=== PATIENT | female | born 1955 | race Caucasian/White ===

== ENCOUNTER 2019-12-21 13:01 | Emergency (ER) | payer MEDICARE, OTHER ==
[2019-12-21] MEDS ORDERED: TORAdol 30 mg Injection IM ONE (13:15)
[2019-12-21] MEDS ORDERED: TORAdol 30 mg Injection ONE ×2 (13:30→13:34)
--- NOTE | 2019-12-21 13:38 | XRAY ---
Indication: Pain following fall. Comparison: None 2 view right femur demonstrates nondisplaced tibial plateau fracture with hemarthosis. No other bony, articular, or soft tissue abnormalities.
--- NOTE | 2019-12-21 13:39 | XRAY ---
Indication: Pain following fall. Comparison: None 2 view right lower leg demonstrates nondisplaced slightly comminuted tibial plateau/proximal tibia fracture with hemarthrosis. No other bony, articular, or soft tissue abnormalities.
[2019-12-21 14:06] VITALS: BP 117/98; PULSE 81; O2SAT 98
--- NOTE | 2019-12-21 14:24 | ERPHSYRPT ---
- History of Present Illness Time Seen by Provider: 12/21/19 13:25 Source: patient Exam Limitations: no limitations Patient Subjective Stated Complaint: Pt fell off the 3rd step of a ladder while power washing and injured her lower right extremity Triage Nursing Assessment: Pt brought to the ER by her , swelling to the right knee, pain below right knee on entire lower extremity, pt unable to place weight, pulses normal, vitals wnl, denies any other injuries Physician History: Patient is a 64-year-old white male female who was on a ladder when she fell off about 3 steps. She then developed pain in the right knee extending up the femur and down the leg. She is unable to bear weight. This occurred just prior to arrival. Method of Injury: fell Occurred: just prior to arrival Quality: stabbing Severity of Pain-Max: moderate Severity of Pain-Current: moderate Lower Extremities Pain: knee: right (Tenderness no effusion) Modifying Factors: Improves With: movement Associated Symptoms: unable to bear weight Allergies/Adverse Reactions: morphine Allergy (Severe, Verified 12/21/19 13:30) Home Medications: Atorvastatin Calcium [Lipitor] 10 mg PO DAILY 12/21/19 [History] captopriL [Captopril] 25 mg PO TID 12/21/19 [History] Travel Risk - International Travel Have you traveled outside of the country in past 3 weeks: No Have you or anyone close to you been diagnosed with or: No Do your reside in a community with a known COVID-19 case?: Yes If Yes where:: [place] - Coronavirus Screening Has patient experienced Coronavirus symptoms: No - Review of Systems Constitutional: No Fever, No Chills Eyes: No Symptoms Ears, Nose, & Throat: No Symptoms Respiratory: No Cough, No Dyspnea Cardiac: No Chest Pain, No Edema, No Syncope Abdominal/Gastrointestinal: No Abdominal Pain, No Nausea, No Vomiting, No Diarrhea Genitourinary Symptoms: No Dysuria Musculoskeletal: Joint Pain, No Back Pain, No Neck Pain Skin: No Rash Neurological: No Dizziness, No Focal Weakness, No Sensory Changes Psychological: No Symptoms Endocrine: No Symptoms All Other Systems: Reviewed and Negative - Past Medical History Cardiac History: High Cholesterol, Hypertension Other Medical History: pre diabetic - Past Surgical History Past Surgical History: Yes Gastrointestinal: Hernia Repair Female Surgical History: Hysterectomy Other Surgical History: prolapse fixed, breast cancer - Social History Smoking Status: Never smoker Exposure to second hand smoke: No Drug Use: none Patient Lives Alone: No - Nursing Vital Signs Nursing Vital Signs: Initial Vital Signs Temperature 98.2 F 12/21/19 13:13 Pulse Rate 88 12/21/19 13:13 Blood Pressure 119/83 12/21/19 13:13 O2 Sat by Pulse Oximetry 96 12/21/19 13:13 Pain Scale Pain Intensity 4 - Physical Exam General Appearance: alert Eyes, Ears, Nose, Throat Exam: moist mucous membranes Neck Exam: non-tender, supple Cardiovascular/Respiratory Exam: chest non-tender, normal breath sounds, regular rate/rhythm, no respiratory distress Gastrointestinal/Abdominal Exam: non-tender, guarding Back Exam: normal inspection, No vertebral tenderness Knees Exam: right knee: bone tenderness, pain, soft tissue tenderness Neuro/Tendon Exam: normal sensation, normal motor functions Mental Status Exam: alert, oriented x 3, cooperative Skin Exam: normal color, warm, dry SpO2: 98 Procedures - Splinting Location of Splint: Lower Leg, Upper Leg Type of Splint: Orthoglass Long Leg Splint Splint Applied By: ED Nurse Pre-Proc Neuro Vasc Exam: normal Post-Proc Neuro Vasc Exam: neurovascular intact - Radiology Exams Knee X-ray Interpretation: Other (Radiologist reports a plateau fracture of the tibia ) Ordered Tests: Active Orders 24 hr Category Date Time Status FEMUR Stat Exams 12/21/19 13:27 Completed LOWER LEG Stat Exams 12/21/19 13:14 Completed Medication Summary Discontinued Medications Generic Name Dose Route Start Last Admin Trade Name Filibertoq PRN Reason Stop Dose Admin Ketorolac Tromethamine 60 mg 12/21/19 13:15 12/21/19 13:33 Toradol 30 Mg Injection IM 12/21/19 13:16 60 mg STAT ONE Administration Ketorolac Tromethamine Confirm 12/21/19 13:30 Toradol 30 Mg Injection Administered 12/21/19 13:31 Dose 30 mg .ROUTE .STK-MED ONE Ketorolac Tromethamine Confirm 12/21/19 13:34 Toradol 30 Mg Injection Administered 12/21/19 13:35 Dose 30 mg .ROUTE .STK-MED ONE - Progress Progress: improved - Departure Departure Disposition: Home Clinical Impression: Tibial plateau fracture, right Condition: Stable Critical Care Time: No Referrals: CLINT KELLEY [Primary Care Provider] - Additional Instructions: Patient follows up at the [facility] in [facility]
== END 2019-12-21 14:44 | disposition home or self-care (01) ==
LOC: ED 13:01
DX: S82.141A Displaced bicondylar fracture of right tibia, initial encounter for closed fracture (principal); M25.561 Pain in right knee; W18.39XA Other fall on same level, initial encounter; Y93.H9 Activity, other involving exterior property and land maintenance, building and construction; Y92.89 Other specified places as the place of occurrence of the external cause; I10 Essential (primary) hypertension; E78.00 Pure hypercholesterolemia, unspecified; R73.03 Prediabetes; Z85.3 Personal history of malignant neoplasm of breast
CPT/HCPCS: 29505; 73552; 73590; 96372; 99284; J1885

== ENCOUNTER 2024-02-21 07:34 | Observation (INO) | payer MEDICARE, OTHER ==
--- NOTE | 2024-02-21 08:11 | ERPHSYRPT ---
- History of Present Illness Time Seen by Provider: 02/21/24 08:00 Source: patient Exam Limitations: no limitations Patient Subjective Stated Complaint: wellness- possible reaction Triage Nursing Assessment: Patient ambulated back to ED and transferred self to bed. Patient A+O X 3. Patient's skin pink, warm and dry. Patient states she took Tramadol 50mg PO around 1999, which was her first time ever taking this med. Patient states she got up to use restroom sometime in the night and stated she felt fuzzy. Patient states when she got up this am around 0700 all of a sudden she started sweating, lips tingling, vision blurred and nauseated, which got better after 10 min. Patient states she is in a lot of pain with her neck and headache 05/31. Patient states she still feels fussy. BS noted to be 105. Physician History: Patient is a 68-year-old female with a history of hypertension and hypercholesterolemia presents to the emergency department for evaluation of lip tingling, diaphoresis, nausea that started this morning at approximately 7 AM. No emmy chest pain. Patient attributes her symptoms to tramadol which she took last night at approximately 8 PM. Patient states after taking tramadol she began to feel "fuzzy". Patient went to sleep and had no issues overnight. This morning developed a forementioned symptoms. Patient advises that she has been experiencing neck pain. Patient has seen her primary care doctor and at this point they do not have an answer for her neck pain and spite of imaging studies. She is currently scheduled for a neck MRI. Symptoms are mild to moderate in intensity. No specific worsening or improving factors. Patient has not had a cardiac workup other than a heart scan in August 2023. at bedside. They voiced no other complaints or concerns at this time Portions of this note were created with voice recognition technology. There may be grammatical, spelling, punctuation or sound alike errors Timing/Duration: today Severity: moderate Modifying Factors: Improves With: nothing Associated Symptoms: denies symptoms Allergies/Adverse Reactions: morphine Allergy (Severe, Verified 02/21/24 07:42) tramadol Allergy (Verified 02/21/24 08:29) Home Medications: Atorvastatin Calcium [Lipitor] 10 mg PO DAILY 12/21/19 [History] captopriL [Captopril] 25 mg PO TID 12/21/19 [History] Alendronate Sodium [Fosamax] 1 tab PO WEEKLY 02/21/24 [History] Multivitamin 1 tab PO DAILY 02/21/24 [History] Hx Influenza Vaccination/Date Given: Yes Hx Pneumococcal Vaccination/Date Given: Yes Immunizations Up to Date: Yes Travel Risk - International Travel Have you traveled outside of the country in past 3 weeks: No - Emerging Infectious Disease Are you exhibiting symptoms associated with any current EIDs: No - Review of Systems Constitutional: No Symptoms, No Fever, No Chills Eyes: No Symptoms Ears, Nose, & Throat: No Symptoms Respiratory: No Symptoms, No Cough, No Dyspnea Cardiac: No Symptoms, No Chest Pain, No Edema, No Syncope Abdominal/Gastrointestinal: No Symptoms, No Abdominal Pain, No Nausea, No Vomiting, No Diarrhea Genitourinary Symptoms: No Symptoms, No Dysuria Musculoskeletal: No Symptoms, No Back Pain, No Neck Pain Skin: No Symptoms, No Rash Neurological: No Symptoms, No Dizziness, No Focal Weakness, No Sensory Changes Psychological: No Symptoms Endocrine: No Symptoms Hematologic/Lymphatic: No Symptoms Immunological/Allergic: No Symptoms All Other Systems: Reviewed and Negative - Past Medical History Pertinent Past Medical History: Yes Neurological History: Migraines Cardiac History: High Cholesterol, Hypertension Respiratory History: No Pertinent History Endocrine Medical History: Other Musculoskeletal History: Fractures, Osteoarthritis Other Medical History: PAST R TIBIA FRACTURE. PRE-DIABETIC - Past Surgical History Past Surgical History: Yes Gastrointestinal: Hernia Repair Female Surgical History: Hysterectomy Other Surgical History: prolapse fixed, breast cancer - Social History Smoking Status: Never smoker Exposure to second hand smoke: No Drug Use: none Patient Lives Alone: No - Social Determinants of Health Will the patient participate in the screening: Yes Do you worry about a steady place to live?: No Do you have any problems with any of the following?: No known problems In the past 12 months,have you had to go without utilities?: No Transportation Issues: No Has anyone in your support network made you feel unsafe?: No Have you or anyone in your house had to go without enough: No - Nursing Vital Signs Nursing Vital Signs: Initial Vital Signs Temperature 97.6 F 02/21/24 07:45 Pulse Rate 56 L 02/21/24 07:45 Respiratory Rate 20 02/21/24 07:45 Blood Pressure 163/84 02/21/24 07:45 O2 Sat by Pulse Oximetry 97 02/21/24 07:45 Pain Scale Pain Intensity 0 - Physical Exam General Appearance: no apparent distress, alert Eye Exam: PERRL/EOMI, eyes nml inspection Ears, Nose, Throat Exam: normal ENT inspection, TMs normal, pharynx normal, moist mucous membranes Neck Exam: normal inspection, non-tender, supple, full range of motion Respiratory Exam: normal breath sounds, lungs clear, No respiratory distress Cardiovascular Exam: regular rate/rhythm, normal heart sounds, normal peripheral pulses Gastrointestinal/Abdomen Exam: soft, normal bowel sounds, No tenderness, No mass Back Exam: normal inspection, normal range of motion, No CVA tenderness, No vertebral tenderness Extremity Exam: normal inspection, normal range of motion, pelvis stable Neurologic Exam: alert, oriented x 3, cooperative, normal mood/affect, nml cerebellar function, nml station & gait, sensation nml, No motor deficits Skin Exam: normal color, warm, dry, No rash Lymphatic Exam: No adenopathy SpO2 Interpretation: normal SpO2: 97 O2 Delivery: Room Air - Course Nursing assessment & vital signs reviewed: Yes EKG Interpreted by Me: RATE (54), Sinus Rhythm, NORMAL AXIS, NORMAL INTERVALS, NORMAL QRS - Radiology Exams Chest X-ray Interpretation: Teleradiologist Report (New right lower lobe airspace disease) Ordered Tests: Active Orders 24 hr Category Date Time Status General Assignment Reporter STAT Care 02/21/24 08:09 Active EKG-ER Only STAT Care 02/21/24 08:09 Active IV Insertion STAT Care 02/21/24 08:09 Active Pulse Oximetry (ED) STAT Care 02/21/24 08:09 Active CHEST 1 VIEW (PORTABLE) Stat Exams 02/21/24 08:15 Completed CBC W DIFF Stat Lab 02/21/24 08:45 Completed CMP Stat Lab 02/21/24 08:45 Completed CULTURE,URINE Stat Lab 02/21/24 08:00 Received NT PRO BNPII Stat Lab 02/21/24 08:45 Completed POCT GLUCOSE Stat Lab 02/21/24 07:55 Completed TROPONIN Q4H Lab 02/21/24 08:45 Completed TROPONIN Q4H Lab 02/21/24 12:15 Ordered TROPONIN Q4H Lab 02/21/24 16:15 Ordered UA W/RFX UR CULTURE Stat Lab 02/21/24 08:00 Completed Medication Summary Generic Name Dose Route Start Last Admin Trade Name Freq PRN Reason Stop Dose Admin Azithromycin 500 mg in 250 mls @ 250 mls/hr 02/21/24 09:52 Zithromax 500 Mg/ 250 Ml Nacl Premix IV 02/21/24 10:51 STAT STA Discontinued Medications Generic Name Dose Route Start Last Admin Trade Name Viki PRN Reason Stop Dose Admin Ceftriaxone Sodium 1 gm in 100 mls @ 200 mls/hr 02/21/24 09:40 02/21/24 10:09 Rocephin 1 Gm / 100 Ml Nacl IV 02/21/24 10:09 200 ml/hr STAT ONE 200 mls/hr Administration Ceftriaxone Sodium 1 gm in 100 mls @ 200 mls/hr 02/21/24 09:52 02/21/24 10:05 Rocephin 1 Gm / 100 Ml Nacl IV 02/21/24 10:21 Not Given STAT ONE Ceftriaxone Sodium Confirm 02/21/24 10:06 Rocephin 1 Gm / 100 Ml Nacl Administered 02/21/24 10:07 Dose 1 gm in 100 mls @ ud IV .[facility]-MED ONE Lab/Rad Data: Laboratory Result Diagrams 02/21/24 08:45 02/21/24 08:45 Laboratory Results 02/21/24 02/21/24 02/21/24 Range/Units 08:45 08:45 08:00 WBC 7.0 (3.98-10.04) x10^3/uL RBC 4.65 (3.93-5.22) x10^6/uL Hgb 15.1 (11.2-15.7) g/dL Hct 45.6 H (34.1-44.9) % MCV 98.1 H (79.4-94.8) fL MCH 32.5 H (25.6-32.2) pg MCHC 33.1 (32.2-35.5) g/dL RDW 13.2 (11.7-14.4) % Plt Count 260 (182-369) x10^3/uL MPV 9.8 (9.4-12.3) fL Gran % 43.0 (34.0-71.1) % Immature Gran % (Auto) 0.7 H (0.001-0.429) % Nucleat RBC Rel Count 0.0 (0.00-0.2) % Eos # (Auto) 0.09 (0.04-0.36) x10^3/uL Immature Gran # (Auto) 0.05 H (0.001-0.031) x10^3u/L Absolute Lymphs (auto) 3.19 (1.18-3.74) x10^3/uL Absolute Monos (auto) 0.62 (0.24-0.86) x10^3/uL Absolute Nucleated RBC 0.00 (0.00-0.012) x10^3u/L Lymphocytes % 45.5 (19.3-51.7) % Monocytes % 8.8 (4.7-12.5) % Eosinophils % 1.3 (0.7-5.8) % Basophils % 0.7 (0.1-1.2) % Absolute Granulocytes 3.01 (1.56-6.13) x10^3/uL Basophils # 0.05 (0.01-0.08) x10^3/uL Sodium 141 (135-145) mmol/L Potassium 3.8 (3.5-5.1) mmol/L Chloride 105 (98-107) mmol/L Carbon Dioxide 24 (22-30) mmol/L Anion Gap 15.9 H (5-15) MEQ/L BUN 13 (7-17) mg/dL Creatinine 0.58 (0.52-1.04) mg/dL Estimated GFR 97.9 ML/MIN Glucose 97 (74-106) mg/dL POC Glucometer (74 to 106) mg/dL Calcium 10.9 H (8.4-10.2) mg/dL Total Bilirubin 1.50 H (0.2-1.3) mg/dL AST 24 (14-36) U/L ALT 27 (0-35) U/L Alkaline Phosphatase 83 (38-126) U/L Troponin I < 0.012 (0.000-0.033) ng/mL NT-Pro-B Natriuret Pep 24.1 (<300) pg/mL Serum Total Protein 7.1 (6.3-8.2) g/dL Albumin 4.2 (3.5-5.0) g/dL Urine Color Yellow (Yellow) Urine Appearance Clear (Clear) Urine pH 6.5 (4.6-8.0) Ur Specific [place] 1.015 (1.005-1.030) Urine Protein Negative (Negative) Urine Glucose (UA) Negative (Negative) mg/dL Urine Ketones Negative (Negative) Urine Blood Negative (Negative) Urine Nitrite Negative (Negative) Urine Bilirubin Negative (Negative) Urine Urobilinogen 0.2 (0.2) mg/dL Ur Leukocyte Esterase Large A (Negative) U Hyaline Cast (Auto) NONE SEEN (0-2) /LPF Urine Microscopic RBC 0-2 (0-5) /HPF Urine Microscopic WBC 11-20 A (0-5) /HPF Ur Epithelial Cells Few (None Seen) /HPF Urine Bacteria None Seen (None Seen) /HPF Urine Culture Reflexed YES (NO) 02/21/24 Range/Units 07:55 WBC (3.98-10.04) x10^3/uL RBC (3.93-5.22) x10^6/uL Hgb (11.2-15.7) g/dL Hct (34.1-44.9) % MCV (79.4-94.8) fL MCH (25.6-32.2) pg MCHC (32.2-35.5) g/dL RDW (11.7-14.4) % Plt Count (182-369) x10^3/uL MPV (9.4-12.3) fL Gran % (34.0-71.1) % Immature Gran % (Auto) (0.001-0.429) % Nucleat RBC Rel Count (0.00-0.2) % Eos # (Auto) (0.04-0.36) x10^3/uL Immature Gran # (Auto) (0.001-0.031) x10^3u/L Absolute Lymphs (auto) (1.18-3.74) x10^3/uL Absolute Monos (auto) (0.24-0.86) x10^3/uL Absolute Nucleated RBC (0.00-0.012) x10^3u/L Lymphocytes % (19.3-51.7) % Monocytes % (4.7-12.5) % Eosinophils % (0.7-5.8) % Basophils % (0.1-1.2) % Absolute Granulocytes (1.56-6.13) x10^3/uL Basophils # (0.01-0.08) x10^3/uL Sodium (135-145) mmol/L Potassium (3.5-5.1) mmol/L Chloride (98-107) mmol/L Carbon Dioxide (22-30) mmol/L Anion Gap (5-15) MEQ/L BUN (7-17) mg/dL Creatinine (0.52-1.04) mg/dL Estimated GFR ML/MIN Glucose (74-106) mg/dL POC Glucometer 105 (74 to 106) mg/dL Calcium (8.4-10.2) mg/dL Total Bilirubin (0.2-1.3) mg/dL AST (14-36) U/L ALT (0-35) U/L Alkaline Phosphatase (38-126) U/L Troponin I (0.000-0.033) ng/mL NT-Pro-B Natriuret Pep (<300) pg/mL Serum Total Protein (6.3-8.2) g/dL Albumin (3.5-5.0) g/dL Urine Color (Yellow) Urine Appearance (Clear) Urine pH (4.6-8.0) Ur Specific [place] (1.005-1.030) Urine Protein (Negative) Urine Glucose (UA) (Negative) mg/dL Urine Ketones (Negative) Urine Blood (Negative) Urine Nitrite (Negative) Urine Bilirubin (Negative) Urine Urobilinogen (0.2) mg/dL Ur Leukocyte Esterase (Negative) U Hyaline Cast (Auto) (0-2) /LPF Urine Microscopic RBC (0-5) /HPF Urine Microscopic WBC (0-5) /HPF Ur Epithelial Cells (None Seen) /HPF Urine Bacteria (None Seen) /HPF Urine Culture Reflexed (NO) - Progress Progress: improved Progress Note: 68-year-old female presents to our ED for evaluation of nausea diaphoresis tingling of her lips. Patient thought it was related to the tramadol she had taken the night before. Patient reported adverse effect of tramadol however we have updated patient's allergy profile to include tramadol. In light of her symptomology patient's age and cardiovascular risk factors patient admitted for ACS. During workup patient was found to have a right lower lobe pneumonia and a urinary tract infection. Antibiotics administered. Patient will be admitted for further evaluation and treatment. Patient accepted by Dr. Helton At 10:40 AM. Plan of care discussed with patient. Patient agreed to admission [facility] for further evaluation and treatment. Complexity problem addressed is moderate acute complicated. No critical care time. Complex of data reviewed and analyzed is extensive. Test ordered test reviewed results analyzed and correlated clinically with history and physical exam. Risk of complication and or risk of morbidity/mortality patient management is high. Patient requires hospitalization for further evaluation and treatment. Vital stable. Time spent to admit patient approximately 20 minutes. Plan of care established for shared decision making. No social determinants of health present impede follow-up. Portions of this note were created with voice recognition technology. There may be grammatical, spelling, punctuation or sound alike errors 02/21/24 10:53 Counseled pt/family regarding: lab results, diagnosis, need for follow-up - Departure Departure Disposition: Observation Clinical Impression: Nausea, Diaphoresis, ACS (acute coronary syndrome), Pneumonia, UTI (urinary tract infection) Condition: Stable Critical Care Time: No Referrals: CLINT KELLEY [Primary Care Provider] - Follow up/PCP as directed
[2024-02-21 08:28] LABS: Appearance Clear (Clear); Bacteria None Seen /HPF (None Seen); Bilirubin Negative (Negative); Blood Negative (Negative); Epithelial Cells Few /HPF (None Seen); Glucose, Urine Negative (Negative); Hyaline Casts NONE SEEN /LPF (0-2); Ketones Negative (Negative); Leukocyte Esterase Large (Negative); Nitrite Negative (Negative); Ph 6.5 (4.6-8.0); Protein,Urine Dip Negative (Negative); RBC 0-2 /HPF (0-5); Specific Gravity 1.015 (1.005-1.030); Urobilinogen 0.2 mg/dL (0.2)
[2024-02-21 08:44] LABS: Absolute Neutrophil Ct (ANC) 3.01 x10^3/uL (1.56-6.13); BASOPHIL % 0.7 % (0.1-1.2); Basophil (Absolute #) 0.05 x10^3/uL (0.01-0.08); Eosinophil % 1.3 % (0.7-5.8); Eosinophil (Absolute #) 0.09 x10^3/uL (0.04-0.36); Hematocrit 45.6 % (34.1-44.9); Hemoglobin 15.1 g/dL (11.2-15.7); IMMATURE GRAN # 0.05 x10^3u/L (0.001-0.031); IMMATURE GRAN % 0.7 % (0.001-0.429); Lymphocyte (Absolute #) 3.19 x10^3/uL (1.18-3.74); Lymphocytes % 45.5 % (19.3-51.7); Mean Cell Volume 98.1 fL (79.4-94.8); Mean Corpuscular Hemoglobin 32.5 pg (25.6-32.2); Mean Corpuscular Hgb Concent. 33.1 g/dL (32.2-35.5); Mean Platelet Volume 9.8 fL (9.4-12.3); Monocyte (Absolute #) 0.62 x10^3/uL (0.24-0.86); Monocytes % 8.8 % (4.7-12.5); Platelet Count 260 x10^3/uL (182-369); Red Blood Count 4.65 x10^6/uL (3.93-5.22); Red Cell Distribution Width 13.2 % (11.7-14.4)
[2024-02-21 09:08] LABS: ADD URINE CULTURE? YES (NO)
[2024-02-21 09:34] LABS: ALBUMIN 4.2 g/dL (3.5-5.0); ALKALINE PHOSPHATASE 83 U/L (38-126); ANION GAP 15.9 MEQ/L (5-15); BLOOD UREA NITROGEN 13 mg/dL (7-17); CHLORIDE 105 mmol/L (98-107); Calcium 10.9 mg/dL (8.4-10.2); Carbon Dioxide 24 mmol/L (22-30); Creatinine 1 0.58 mg/dL (0.52-1.04); EST GLOMERULAR FILTRATION RATE 97.9 ML/MIN; Glucose 97 mg/dL (74-106); NT PRO BNPII 24.1 pg/mL (<300); Potassium 3.8 mmol/L (3.5-5.1); SGOT/AST 24 U/L (14-36); SGPT/ALT 27 U/L (0-35); SODIUM 141 mmol/L (135-145); TROPONIN < 0.012 ng/mL (0.000-0.033); Total Protein 7.1 g/dL (6.3-8.2)
--- NOTE | 2024-02-21 09:45 | XRAY ---
Indication: Chest pain. Comparison: None Portable chest demonstrates new right lower lobe consolidating airspace disease. Minimal left lung base subsegmental atelectasis/scarring. Heart not enlarged. Bony thorax intact with osteopenia and mild degenerative changes.
[2024-02-21] MEDS: ROCEPHIN 1 GM / 100 ML NaCl 1 GM/100 ML IVPB IV ONE ×2 (10:05→10:09)
[2024-02-21] MEDS ORDERED: ROCEPHIN 1 GM / 100 ML NaCl 1 GM/100 ML IVPB IV ONE (10:06)
[2024-02-21] MEDS ORDERED: Zofran 4 MG/2 ML VIAL ONE (10:58)
[2024-02-21] MEDS ORDERED: Zithromax 500 MG/ 250 ML NaCl Premix 500 MG/250 ML IVPB IV ONE (10:59)
[2024-02-21] MEDS ORDERED: TORAdol 30 mg Injection ONE (10:59)
[2024-02-21] MEDS: Zofran 4 MG/2 ML VIAL IV ONE (11:02)
[2024-02-21] MEDS: Zithromax 500 MG/ 250 ML NaCl Premix 500 MG/250 ML IVPB IV STA (11:03)
[2024-02-21] MEDS: TORAdol 30 mg Injection IV ONE (11:04)
[2024-02-21 11:29] VITALS: RESP 16
[2024-02-21 11:52] LABS: INFLUENZA A NEGATIVE (NEGATIVE); INFLUENZA B NEGATIVE (NEGATIVE); RESPIRATORY SYNCTIAL VIRUS NEGATIVE (NEGATIVE)
[2024-02-21 12:01] LABS: SARS-CoV-2 Xpert Express POSITIVE (NEGATIVE)
--- NOTE | 2024-02-21 12:07 | PCM.HP ---
History of Present Illness - Chief Complaint Chief Complaint: Pneumonia, UTI, nausea diaphoresis Date: 02/21/24 History of Present Illness: is a 68 year old female with PMHX of migraines, hyperlipidemia, HTN, OA, and pre-diabetic. Pt came to the ER today as she states she took Tramadol 50mg PO around 1999, which was her first time ever taking this med. Patient states she got up to use restroom sometime in the night and stated she felt fuzzy. Patient states when she got up this am around 0700 all of a sudden she started sweating, lips tingling, vision blurred and nauseated, which got better after 10 min. Patient states she is in a lot of pain with her neck and headache 10/10 in the ER. Patient states she still feels fussy. BS noted to be 105. Patient explained that she has been experiencing chronic neck pain. She has seen her primary care doctor and at this point they do not have an answer for her neck pain and despite imaging studies. She is currently scheduled for a neck MRI. Symptoms are mild to moderate in intensity. No specific worsening or improving factors. Patient has not had a cardiac workup other than a heart scan in August 2023. CXR does shows RLL pneumonia. UA shows + UTI. Serology + for COVID. She is room air 94%. She was started on ceftraixone and azithromycin in the ER. She was also given Zofran for nausea and Ketoralac for pain. She currently rates her neck pain at 8/10, she states this is good for her. She sttes neck pain has progressively got worse x3 weeks. She denies CP, abd. pain, N/V/D. - Review of Systems Constitutional: No Fever, No Chills Eyes: No Symptoms Ears, Nose, & Throat: No Symptoms Respiratory: No Cough, No Short Of Breath Cardiac: No Chest Pain, No Edema, No Syncope Abdominal/Gastrointestinal: No Abdominal Pain, No Nausea, No Vomiting, No Diarrhea Genitourinary Symptoms: No Dysuria Musculoskeletal: Neck Pain, No Back Pain Skin: No Rash Neurological: No Dizziness, No Focal Weakness, No Sensory Changes Psychological: No Symptoms Endocrine: No Symptoms Hematologic/Lymphatic: No Symptoms Immunological/Allergic: No Symptoms Medications & Allergies Home Medications: Home Medication List Atorvastatin Calcium [Lipitor] 10 mg PO DAILY 12/21/19 [History Confirmed 02/21/24] captopriL [Captopril] 25 mg PO TID 12/21/19 [History Confirmed 02/21/24] Alendronate Sodium [Fosamax] 70 mg PO WEEKLY 02/21/24 [History Confirmed 02/21/24] Cholecalciferol (Vitamin D3) [Vitamin D3] 25 mcg PO DAILY 02/21/24 [History Confirmed 02/21/24] Magnesium Oxide [Magnesium] 500 mg PO DAILY 02/21/24 [History Confirmed 02/21/24] Multivitamin 1 tab PO DAILY 02/21/24 [History Confirmed 02/21/24] Allergies/Adverse Reactions: Allergies Allergy/AdvReac Type Severity Reaction Status Date / Time tramadol Allergy Verified 02/21/24 08:29 morphine AdvReac Severe difficulty Verified 02/21/24 11:56 to arouse, vomiting latex AdvReac Mild "red and Verified 02/21/24 11:56 inflamed" - Past Medical History Past Medical History: Yes Neurological History: Migraines Cardiac History: High Cholesterol, Hypertension Respiratory History: No Pertinent History Endocrine Medical History: Other Musculoskelatal History: Fractures, Osteoarthritis Comment: PAST R TIBIA FRACTURE. PRE-DIABETIC - Past Surgical History Past Surgical History: Yes GI Surgical History: Hernia Repair Female Surgical History: Hysterectomy Other Surgical History: prolapse fixed, breast cancer - Social History Smoking Status: Never smoker Exposure to second hand smoke: No Alcohol: Occasionally Drug Use: none - Social Determinants of Health Will the patient participate in the screening: Yes Do you worry about a steady place to live?: No Do you have any problems with any of the following?: No known problems In the past 12 months,have you had to go without utilities?: No Have you or anyone in your house had to go without enough: No Transportation Issues: No Has anyone in your support network made you feel unsafe?: No - Physical Exam Vital Signs: Vital Signs - 24 hr Temp Pulse Resp BP BP Pulse Ox 02/21/24 11:20 67 16 94 L 02/21/24 11:10 53 L 14 95 02/21/24 11:02 59 L 14 96 02/21/24 10:55 97 02/21/24 10:30 59 L 13 139/84 92 L 02/21/24 10:00 55 L 17 142/83 95 02/21/24 09:30 57 L 14 155/94 92 L 02/21/24 09:03 62 18 127/79 93 L 02/21/24 08:30 66 17 124/88 94 L 02/21/24 08:20 98 02/21/24 08:01 58 L 22 155/79 96 02/21/24 07:45 97.6 F 56 L 20 163/84 97 General Appearance: no apparent distress, alert Neurologic Exam: alert, oriented x 3, cooperative, normal mood/affect, nml cerebellar function, nml station & gait, sensation nml, No motor deficits Eye Exam: PERRL/EOMI, eyes nml inspection Ears, Nose, Throat Exam: normal ENT inspection, TMs normal, pharynx normal, moist mucous membranes Neck Exam: normal inspection, non-tender, supple, full range of motion Respiratory Exam: normal breath sounds, lungs clear, No respiratory distress Cardiovascular Exam: regular rate/rhythm, normal heart sounds, normal peripheral pulses Gastrointestinal/Abdomen Exam: soft, normal bowel sounds, No tenderness, No mass Back Exam: normal inspection, normal range of motion, No CVA tenderness, No vertebral tenderness Extremity Exam: normal inspection, normal range of motion, pelvis stable Skin Exam: normal color, warm, dry, No rash Lymphatic Exam: No adenopathy Results - Labs Lab/Micro Results: Lab Results-Last 24 Hours 02/21/24 02/21/24 02/21/24 Range/Units 07:55 08:00 08:45 WBC 7.0 (3.98-10.04) x10^3/uL RBC 4.65 (3.93-5.22) x10^6/uL Hgb 15.1 (11.2-15.7) g/dL Hct 45.6 H (34.1-44.9) % MCV 98.1 H (79.4-94.8) fL MCH 32.5 H (25.6-32.2) pg MCHC 33.1 (32.2-35.5) g/dL RDW 13.2 (11.7-14.4) % Plt Count 260 (182-369) x10^3/uL MPV 9.8 (9.4-12.3) fL Gran % 43.0 (34.0-71.1) % Immature Gran % (Auto) 0.7 H (0.001-0.429) % Nucleat RBC Rel Count 0.0 (0.00-0.2) % Eos # (Auto) 0.09 (0.04-0.36) x10^3/uL Immature Gran # (Auto) 0.05 H (0.001-0.031) x10^3u/L Absolute Lymphs (auto) 3.19 (1.18-3.74) x10^3/uL Absolute Monos (auto) 0.62 (0.24-0.86) x10^3/uL Absolute Nucleated RBC 0.00 (0.00-0.012) x10^3u/L Lymphocytes % 45.5 (19.3-51.7) % Monocytes % 8.8 (4.7-12.5) % Eosinophils % 1.3 (0.7-5.8) % Basophils % 0.7 (0.1-1.2) % Absolute Granulocytes 3.01 (1.56-6.13) x10^3/uL Basophils # 0.05 (0.01-0.08) x10^3/uL Sodium (135-145) mmol/L Potassium (3.5-5.1) mmol/L Chloride (98-107) mmol/L Carbon Dioxide (22-30) mmol/L Anion Gap (5-15) MEQ/L BUN (7-17) mg/dL Creatinine (0.52-1.04) mg/dL Estimated GFR ML/MIN Glucose (74-106) mg/dL POC Glucometer 105 (74 to 106) mg/dL Calcium (8.4-10.2) mg/dL Total Bilirubin (0.2-1.3) mg/dL AST (14-36) U/L ALT (0-35) U/L Alkaline Phosphatase (38-126) U/L Troponin I (0.000-0.033) ng/mL NT-Pro-B Natriuret Pep (<300) pg/mL Serum Total Protein (6.3-8.2) g/dL Albumin (3.5-5.0) g/dL Urine Color Yellow (Yellow) Urine Appearance Clear (Clear) Urine pH 6.5 (4.6-8.0) Ur Specific [place] 1.015 (1.005-1.030) Urine Protein Negative (Negative) Urine Glucose (UA) Negative (Negative) mg/dL Urine Ketones Negative (Negative) Urine Blood Negative (Negative) Urine Nitrite Negative (Negative) Urine Bilirubin Negative (Negative) Urine Urobilinogen 0.2 (0.2) mg/dL Ur Leukocyte Esterase Large A (Negative) U Hyaline Cast (Auto) NONE SEEN (0-2) /LPF Urine Microscopic RBC 0-2 (0-5) /HPF Urine Microscopic WBC 11-20 A (0-5) /HPF Ur Epithelial Cells Few (None Seen) /HPF Urine Bacteria None Seen (None Seen) /HPF Urine Culture Reflexed YES (NO) 02/21/24 Range/Units 08:45 WBC (3.98-10.04) x10^3/uL RBC (3.93-5.22) x10^6/uL Hgb (11.2-15.7) g/dL Hct (34.1-44.9) % MCV (79.4-94.8) fL MCH (25.6-32.2) pg MCHC (32.2-35.5) g/dL RDW (11.7-14.4) % Plt Count (182-369) x10^3/uL MPV (9.4-12.3) fL Gran % (34.0-71.1) % Immature Gran % (Auto) (0.001-0.429) % Nucleat RBC Rel Count (0.00-0.2) % Eos # (Auto) (0.04-0.36) x10^3/uL Immature Gran # (Auto) (0.001-0.031) x10^3u/L Absolute Lymphs (auto) (1.18-3.74) x10^3/uL Absolute Monos (auto) (0.24-0.86) x10^3/uL Absolute Nucleated RBC (0.00-0.012) x10^3u/L Lymphocytes % (19.3-51.7) % Monocytes % (4.7-12.5) % Eosinophils % (0.7-5.8) % Basophils % (0.1-1.2) % Absolute Granulocytes (1.56-6.13) x10^3/uL Basophils # (0.01-0.08) x10^3/uL Sodium 141 (135-145) mmol/L Potassium 3.8 (3.5-5.1) mmol/L Chloride 105 (98-107) mmol/L Carbon Dioxide 24 (22-30) mmol/L Anion Gap 15.9 H (5-15) MEQ/L BUN 13 (7-17) mg/dL Creatinine 0.58 (0.52-1.04) mg/dL Estimated GFR 97.9 ML/MIN Glucose 97 (74-106) mg/dL POC Glucometer (74 to 106) mg/dL Calcium 10.9 H (8.4-10.2) mg/dL Total Bilirubin 1.50 H (0.2-1.3) mg/dL AST 24 (14-36) U/L ALT 27 (0-35) U/L Alkaline Phosphatase 83 (38-126) U/L Troponin I < 0.012 (0.000-0.033) ng/mL NT-Pro-B Natriuret Pep 24.1 (<300) pg/mL Serum Total Protein 7.1 (6.3-8.2) g/dL Albumin 4.2 (3.5-5.0) g/dL Urine Color (Yellow) Urine Appearance (Clear) Urine pH (4.6-8.0) Ur Specific [place] (1.005-1.030) Urine Protein (Negative) Urine Glucose (UA) (Negative) mg/dL Urine Ketones (Negative) Urine Blood (Negative) Urine Nitrite (Negative) Urine Bilirubin (Negative) Urine Urobilinogen (0.2) mg/dL Ur Leukocyte Esterase (Negative) U Hyaline Cast (Auto) (0-2) /LPF Urine Microscopic RBC (0-5) /HPF Urine Microscopic WBC (0-5) /HPF Ur Epithelial Cells (None Seen) /HPF Urine Bacteria (None Seen) /HPF Urine Culture Reflexed (NO) - Radiology Impressions Radiology Exams & Impressions: Radiology Procedures Category Date Time Status CHEST 1 VIEW (PORTABLE) Stat Exams 02/21/24 08:15 Completed Assessment/Plan (1) COVID Current Visit: Yes Status: Acute Assessment & Plan: - isolation - tele - Monitor O2 keep > 92% - RA 94% currenlty - d-dimer, procal, CK - High risk age > 65 with pneumonia - BC x2 pending - CXR: Portable chest demonstrates new right lower lobe consolidating airspace disease. Minimal left lung base subsegmental atelectasis/scarring. Heart not enlarged. Bony thorax intact with osteopenia and mild degenerative changes. - consider Chest CT - Molnupiravir Code(s): U07.1 - COVID-19 (2) Pneumonia Current Visit: Yes Status: Acute Assessment & Plan: - COVID Pneumonia - antibiotics, Molnupiravir - hold steroids for now- RA 94% - CXR reviewed- RLL pneumonia Code(s): J18.9 - PNEUMONIA, UNSPECIFIED ORGANISM (3) UTI (urinary tract infection) Current Visit: Yes Status: Acute Assessment & Plan: - UC pending - antibiotics Code(s): N39.0 - URINARY TRACT INFECTION, SITE NOT SPECIFIED (4) Side effect of medication Current Visit: Yes Status: Acute Assessment & Plan: - s/e of tramadol- " felt fuzzy and + nausea" - stop medication Code(s): T88.7XXA - UNSP ADVERSE EFFECT OF DRUG OR MEDICAMENT, INIT ENCNTR (5) HTN (hypertension) Current Visit: Yes Status: Chronic Assessment & Plan: - BP stable - trend - continue home meds Code(s): I10 - ESSENTIAL (PRIMARY) HYPERTENSION (6) Hyperlipidemia Current Visit: Yes Status: Chronic Assessment & Plan: - Continue statin Code(s): E78.5 - HYPERLIPIDEMIA, UNSPECIFIED (7) Neck pain, chronic Current Visit: Yes Status: Chronic Assessment & Plan: - MRI scheduled Op - may be worse 2:2 COVID - tylenol for pain - Morphine 1mg IV Q4 PRN - ice pack VTE: Lovenox Next of KIN: Spouse - J Luis [phone] D/C plan: 1-2 days Code status: Full Code(s): M54.2 - CERVICALGIA; G89.29 - OTHER CHRONIC PAIN
[2024-02-21] MEDS ORDERED: Compazine 10 MG/2 ML IV PRN (12:22)
[2024-02-21] MEDS ORDERED: TYLENOL 325 MG PO PRN (12:23)
[2024-02-21] MEDS: MAG-OX 400 PO SCH (12:25)
[2024-02-21] MEDS: THERAGRAN MULTIVITAMIN PO SCH (12:25)
[2024-02-21] MEDS: VITAMIN D PO SCH (12:25)
[2024-02-21] MEDS: Lactated Ringers 1,000 ML IV SCH (12:25)
[2024-02-21] MEDS ORDERED: Lactated Ringers 1,000 ML IV SCH (12:30)
[2024-02-21 12:45] LABS: PROCALCITONIN 0.032 ng/mL (0.030-0.080)
[2024-02-21] MEDS ORDERED: MORPHINE SULFATE 2 MG INJ IV PRN (12:58)
[2024-02-21] MEDS ORDERED: Zocor 10MG PO SCH (13:00)
[2024-02-21] MEDS: ENOXAPARIN SODIUM SQ SCH (13:35)
[2024-02-21] MEDS: LAGEVRIO (EUA) PO SCH (13:35)
[2024-02-21] MEDS: CAPTOPRIL 25 MG PO SCH (16:17)
[2024-02-21] MEDS: Lidoderm Patch 5% TOP SCH (16:19)
--- NOTE | 2024-02-21 17:17 | XRAY ---
Indication: Elevated d-dimer. Positive Covid 19. Multiple contiguous axial images obtained through the chest using 100 cc Isovue 370 contrast and PE protocol. Comparison: None Good opacification of the pulmonary arteries to include the lobar and segmental branches. No pulmonary embolus. Heart not enlarged. Aorta is normal in course and caliber. No pathologic mediastinal/hilar lymphadenopathy. Right hemidiaphragm elevation with adjacent right base subsegmental atelectasis. No suspicious pulmonary mass/nodule, infiltrate, or effusion. Bony thorax intact with osteopenia and mild degenerative changes throughout the spine. Limited upper abdomen demonstrates fatty liver. Impression: 1. Negative pulmonary embolus. 2. Right hemidiaphragm elevation presumed chronic with right lung base subsegmental atelectasis. Finding corresponds to same day chest radiograph abnormality. 3. No acute cardiopulmonary abnormalities. 4. Incidental osteopenia, mild multilevel degenerative spondylosis, and fatty liver.
[2024-02-21] MEDS ORDERED: PAXLOVID 150-100 MG PACK (EUA) (RENAL DOSING) PO SCH (22:00)
[2024-02-21] MEDS: Cyclobenzaprine 10 MG PO PRN (22:03)
[2024-02-22 04:51] LABS: Hematocrit 41.2 % (34.1-44.9); Hemoglobin 13.7 g/dL (11.2-15.7); Mean Cell Volume 97.9 fL (79.4-94.8); Mean Corpuscular Hemoglobin 32.5 pg (25.6-32.2); Mean Corpuscular Hgb Concent. 33.3 g/dL (32.2-35.5); Mean Platelet Volume 9.3 fL (9.4-12.3); Platelet Count 235 x10^3/uL (182-369); Red Blood Count 4.21 x10^6/uL (3.93-5.22); Red Cell Distribution Width 13.2 % (11.7-14.4); White Blood Count 5.2 x10^3/uL (3.98-10.04)
[2024-02-22 05:20] LABS: ALBUMIN 3.4 g/dL (3.5-5.0); ANION GAP 8.8 MEQ/L (5-15); BILIRUBIN,TOTAL 1.3 mg/dL (0.2-1.3); Calcium 10.4 mg/dL (8.4-10.2); Creatinine 1 0.55 mg/dL (0.52-1.04); EST GLOMERULAR FILTRATION RATE 99.2 ML/MIN; Potassium 4.4 mmol/L (3.5-5.1); Total Protein 6.1 g/dL (6.3-8.2)
[2024-02-22 07:21] VITALS: BP 121/73; PULSE 64; TEMP 98; O2SAT 92
--- NOTE | 2024-02-22 10:11 | PCM.DS ---
Discharge Summary Date of Admission: 02/21/24 11:38 Date of Discharge: 02/22/24 Admitting Physician: SIMÓN YOUNG MD Primary Care Provider: CLINT KELLEY Allergies Allergies tramadol Allergy (Verified 02/21/24 08:29) morphine Adverse Reaction (Severe, Verified 02/21/24 11:56) difficulty to arouse, vomiting latex Adverse Reaction (Mild, Verified 02/21/24 11:56) "red and inflamed" Hospital Summary - Hospital Course Hospital Course: 02/21/24 is a 68 year old female with PMHX of migraines, hyperlipidemia, HTN, OA, and pre-diabetic. Pt came to the ER today as she states she took Tramadol 50mg PO around 1999, which was her first time ever taking this med. Patient states she got up to use restroom sometime in the night and stated she felt fuzzy. Patient states when she got up this am around 0700 all of a sudden she started sweating, lips tingling, vision blurred and nauseated, which got better after 10 min. Patient states she is in a lot of pain with her neck and headache 10/10 in the ER. Patient states she still feels fussy. BS noted to be 105. Patient explained that she has been experiencing chronic neck pain. She has seen her primary care doctor and at this point they do not have an answer for her neck pain and despite imaging studies. She is currently scheduled for a neck MRI. Symptoms are mild to moderate in intensity. No specific worsening or improving factors. Patient has not had a cardiac workup other than a heart scan in August 2023. CXR does shows RLL pneumonia. UA shows + UTI. Serology + for COVID. She is room air 94%. She was started on ceftraixone and azithromycin in the ER. She was also given Zofran for nausea and Ketoralac for pain. She currently rates her neck pain at 8/10, she states this is good for her. She sttes neck pain has progressively got worse x3 weeks. She denies CP, abd. pain, N/V/D. 02/22/24 Pt resting in bed. She is wanting to go home today and feels fine. CT comleted yesterday as D-Dimer 0.59. This was negative fore PE and showed chronic right lung base subsegmental atelectasis. Pt would like to f/u with PCP to discuss. She is RA 92%. Will stop antibitocs for pneumonia based on CT findings. Will stop Molnupiravir as pt is asymptomatic. Will continue OP antibiotics for UTI. UC does show contaminate. She will need to f/u with PCP for UA recheck. Advised to stop tramadol d/t related side effects. Pt found ice pack and lidocaine patch helpful for neck pain. She is also asking for a muscle relaxer, will d/c with Robaxin. Ca+ is stilll slighlty elevated at 10.4 she will need to f/u with PCP for further evaluation. She CP, SOB, abd. pain, N/V/D. - Vitals & Intake/Output Vital Signs: Vital Signs Temperature 98 F 02/22/24 07:20 Pulse Rate 64 02/22/24 07:20 Respiratory Rate 16 02/22/24 07:20 Blood Pressure 121/73 02/22/24 07:20 O2 Sat by Pulse Oximetry 92 L 02/22/24 07:20 Intake & Output: Intake & Output 02/19/24 02/20/24 02/21/24 02/22/24 11:59 11:59 11:59 11:59 Intake Total 1000 Balance 1000 Weight 62.3 kg 62.596 kg - Lab Result Diagrams: 02/22/24 04:34 02/22/24 04:34 Lab Results-Last 24 Hrs: Lab Results-Last 24 Hours 02/21/24 02/21/24 02/21/24 Range/Units 08:45 08:45 11:10 WBC (3.98-10.04) x10^3/uL RBC (3.93-5.22) x10^6/uL Hgb (11.2-15.7) g/dL Hct (34.1-44.9) % MCV (79.4-94.8) fL MCH (25.6-32.2) pg MCHC (32.2-35.5) g/dL RDW (11.7-14.4) % Plt Count (182-369) x10^3/uL MPV (9.4-12.3) fL D-Dimer 0.59 H (0.0-0.50) mg/L Sodium (135-145) mmol/L Potassium (3.5-5.1) mmol/L Chloride (98-107) mmol/L Carbon Dioxide (22-30) mmol/L Anion Gap (5-15) MEQ/L BUN (7-17) mg/dL Creatinine (0.52-1.04) mg/dL Estimated GFR ML/MIN Glucose (74-106) mg/dL Calcium (8.4-10.2) mg/dL Total Bilirubin (0.2-1.3) mg/dL AST (14-36) U/L ALT (0-35) U/L Alkaline Phosphatase (38-126) U/L Creatine Kinase 54 (30-135) U/L Troponin I (0.000-0.033) ng/mL Serum Total Protein (6.3-8.2) g/dL Albumin (3.5-5.0) g/dL Procalcitonin 0.032 (0.030-0.080) ng/mL Influenza Type A Ag NEGATIVE (NEGATIVE) Influenza Type B Ag NEGATIVE (NEGATIVE) RSV (PCR) NEGATIVE (NEGATIVE) SARS-CoV-2 (PCR) POSITIVE A (NEGATIVE) 02/21/24 02/21/24 02/22/24 Range/Units 12:04 16:10 04:34 WBC 5.2 (3.98-10.04) x10^3/uL RBC 4.21 (3.93-5.22) x10^6/uL Hgb 13.7 (11.2-15.7) g/dL Hct 41.2 (34.1-44.9) % MCV 97.9 H (79.4-94.8) fL MCH 32.5 H (25.6-32.2) pg MCHC 33.3 (32.2-35.5) g/dL RDW 13.2 (11.7-14.4) % Plt Count 235 (182-369) x10^3/uL MPV 9.3 L (9.4-12.3) fL D-Dimer (0.0-0.50) mg/L Sodium (135-145) mmol/L Potassium (3.5-5.1) mmol/L Chloride (98-107) mmol/L Carbon Dioxide (22-30) mmol/L Anion Gap (5-15) MEQ/L BUN (7-17) mg/dL Creatinine (0.52-1.04) mg/dL Estimated GFR ML/MIN Glucose (74-106) mg/dL Calcium (8.4-10.2) mg/dL Total Bilirubin (0.2-1.3) mg/dL AST (14-36) U/L ALT (0-35) U/L Alkaline Phosphatase (38-126) U/L Creatine Kinase (30-135) U/L Troponin I < 0.012 < 0.012 (0.000-0.033) ng/mL Serum Total Protein (6.3-8.2) g/dL Albumin (3.5-5.0) g/dL Procalcitonin (0.030-0.080) ng/mL Influenza Type A Ag (NEGATIVE) Influenza Type B Ag (NEGATIVE) RSV (PCR) (NEGATIVE) SARS-CoV-2 (PCR) (NEGATIVE) 02/22/24 Range/Units 04:34 WBC (3.98-10.04) x10^3/uL RBC (3.93-5.22) x10^6/uL Hgb (11.2-15.7) g/dL Hct (34.1-44.9) % MCV (79.4-94.8) fL MCH (25.6-32.2) pg MCHC (32.2-35.5) g/dL RDW (11.7-14.4) % Plt Count (182-369) x10^3/uL MPV (9.4-12.3) fL D-Dimer (0.0-0.50) mg/L Sodium 138 (135-145) mmol/L Potassium 4.4 (3.5-5.1) mmol/L Chloride 108 H (98-107) mmol/L Carbon Dioxide 26 (22-30) mmol/L Anion Gap 8.8 (5-15) MEQ/L BUN 12 (7-17) mg/dL Creatinine 0.55 (0.52-1.04) mg/dL Estimated GFR 99.2 ML/MIN Glucose 102 (74-106) mg/dL Calcium 10.4 H (8.4-10.2) mg/dL Total Bilirubin 1.30 (0.2-1.3) mg/dL AST 25 (14-36) U/L ALT 23 (0-35) U/L Alkaline Phosphatase 67 (38-126) U/L Creatine Kinase (30-135) U/L Troponin I (0.000-0.033) ng/mL Serum Total Protein 6.1 L (6.3-8.2) g/dL Albumin 3.4 L (3.5-5.0) g/dL Procalcitonin (0.030-0.080) ng/mL Influenza Type A Ag (NEGATIVE) Influenza Type B Ag (NEGATIVE) RSV (PCR) (NEGATIVE) SARS-CoV-2 (PCR) (NEGATIVE) Micro Results-Entire Visit: Microbiology 02/21/24 08:00 Urine Culture - Preliminary Urine, Void <10K NORMAL SKIN PREETI PROBABLE SKIN CONTAMINANT - Radiology Exams Ordered Rad Exams-Entire Visit: Radiology Procedures Category Date Time Status CHEST 1 VIEW (PORTABLE) Stat Exams 02/21/24 08:15 Completed CHEST WITH CONTRAST [CT] Routine Exams 02/21/24 15:47 Completed Discharge Exam General Appearance: no apparent distress, alert Neurologic Exam: alert, oriented x 3, cooperative, normal mood/affect, nml cerebellar function, sensation nml, No motor deficits Eye Exam: PERRL, EOMI, eyes nml inspection Ears, Nose, Throat Exam: normal ENT inspection, pharynx normal, moist mucous membranes Neck Exam: normal inspection, non-tender, supple, full range of motion Respiratory Exam: normal breath sounds, lungs clear, No respiratory distress Cardiovascular Exam: regular rate/rhythm, normal heart sounds Gastrointestinal/Abdomen Exam: soft, No tenderness, No mass Pelvic Exam: deferred Rectal Exam: deferred Back Exam: normal inspection, normal range of motion, No CVA tenderness, No vertebral tenderness Extremity Exam: normal inspection, normal range of motion Skin Exam: normal color, warm, dry Final Diagnosis/Problem List - Final Discharge Diagnosis/Problem (1) COVID Current Visit: Yes Status: Acute Assessment & Plan: - isolation - tele - Monitor O2 keep > 92% - RA 94% currenlty - d-dimer, procal, CK - High risk age > 65 with pneumonia - BC x2 pending - CXR: Portable chest demonstrates new right lower lobe consolidating airspace disease. Minimal left lung base subsegmental atelectasis/scarring. Heart not enlarged. Bony thorax intact with osteopenia and mild degenerative changes. - Chest CTA Impression: 1. Negative pulmonary embolus. 2. Right hemidiaphragm elevation presumed chronic with right lung base subsegmental atelectasis. Finding corresponds to same day chest radiograph abnormality. 3. No acute cardiopulmonary abnormalities. 4. Incidental osteopenia, mild multilevel degenerative spondylosis, and fatty liver. - Molnupiravir antiviral 02/21 - RA 92% - denies SOB - stop antiviral and antibiotics based on CT - discussed CT results with pt Code(s): U07.1 - COVID-19 (2) Pneumonia Current Visit: Yes Status: Resolved Priority: Low Assessment & Plan: - COVID Pneumonia - antibiotics, Molnupiravir - hold steroids for now- RA 94% - CXR reviewed- RLL pneumonia 02/21 - CTA reviewed not pneumonia - WBC WNL Code(s): J18.9 - PNEUMONIA, UNSPECIFIED ORGANISM (3) UTI (urinary tract infection) Current Visit: Yes Status: Acute Assessment & Plan: - UC - possible skin contaminant - antibiotics IV 02/21 - will D/C with PO antibiotics Code(s): N39.0 - URINARY TRACT INFECTION, SITE NOT SPECIFIED (4) Side effect of medication Current Visit: Yes Status: Acute Assessment & Plan: - s/e of tramadol- " felt fuzzy and + nausea" - stop medication Code(s): T88.7XXA - UNSP ADVERSE EFFECT OF DRUG OR MEDICAMENT, INIT ENCNTR (5) HTN (hypertension) Current Visit: Yes Status: Chronic Assessment & Plan: - BP stable - trend - continue home meds Code(s): I10 - ESSENTIAL (PRIMARY) HYPERTENSION (6) Hyperlipidemia Current Visit: Yes Status: Chronic Assessment & Plan: - Continue statin Code(s): E78.5 - HYPERLIPIDEMIA, UNSPECIFIED (7) Neck pain, chronic Current Visit: Yes Status: Chronic Assessment & Plan: - MRI scheduled Op - may be worse 2:2 COVID - tylenol for pain - Lidocaine patch - ice pack 02/21 - Muscle relaxer ordered by auto technician mechanic doctor - Will send in Robaxin low dose Op Code(s): M54.2 - CERVICALGIA; G89.29 - OTHER CHRONIC PAIN (8) D-dimer, elevated Current Visit: Yes Status: Acute Assessment & Plan: - CTA Impression: 1. Negative pulmonary embolus. 2. Right hemidiaphragm elevation presumed chronic with right lung base subsegmental atelectasis. Finding corresponds to same day chest radiograph abnormality. 3. No acute cardiopulmonary abnormalities. 4. Incidental osteopenia, mild multilevel degenerative spondylosis, and fatty liver. Code(s): R79.89 - OTHER SPECIFIED ABNORMAL FINDINGS OF BLOOD CHEMISTRY - Discharge Discharge Date: 02/22/24 Disposition: Home, Self-Care Condition: Stable Prescriptions: Continue captopriL [Captopril] 25 mg PO TID Atorvastatin Calcium [Lipitor] 10 mg PO DAILY Multivitamin 1 tab PO DAILY Alendronate Sodium [Fosamax] 70 mg PO WEEKLY Magnesium Oxide [Magnesium] 500 mg PO DAILY Cholecalciferol (Vitamin D3) [Vitamin D3] 25 mcg PO DAILY Additional Instructions: * Lidocaine patches can be purchased over the counter. Do not use a heating pad with them as this can cause a skin burn. * For COVID: practice good hand hygiene. Stay home if able, wear a mask if out for the next 5 days. Keep distance from others. Stay away from people over 65, people with weakened immune systems, women, and children. * Stop Tramadol Follow up with: CLINT KELLEY [Primary Care Provider] - 02/29/24 11:30 am
[2024-02-22] MEDS: ROCEPHIN 1 GM / 100 ML NaCl 1 GM/100 ML IVPB IV SCH (10:51)
[2024-02-22] MEDS: Zithromax 500 MG/ 250 ML NaCl Premix 500 MG/250 ML IVPB IV SCH (10:51)
[2024-02-22] MEDS: Zocor 10MG PO SCH (10:51)
[2024-02-27] MEDS ORDERED: Fosamax 70 MG PO SCH (06:00)
== END 2024-02-22 10:59 | disposition home or self-care (01) ==
LOC: ED 07:34 → MED SURG 11:38
PROVIDERS: ADMIT Internal Medicine; ATTEND Internal Medicine
DX: U07.1 COVID-19 (principal); J18.9 Pneumonia, unspecified organism; N39.0 Urinary tract infection, site not specified; T40.425A Adverse effect of tramadol, initial encounter; I10 Essential (primary) hypertension; E78.5 Hyperlipidemia, unspecified; M54.2 Cervicalgia; G89.29 Other chronic pain; R79.89 Other specified abnormal findings of blood chemistry; R73.03 Prediabetes; Z79.899 Other long term (current) drug therapy; Z85.3 Personal history of malignant neoplasm of breast
CPT/HCPCS: 0241U; 36000; 36415; 71045; 71260; 80053; 81001; 82550; 82947; 83880; 84145; 84484; 85025; 85027; 85379; 87040; 87086; 93005; 93041; 93268; 94760; 96365; 96367; 96374; 96375; 99285; G0378; Q3014; J0456; J0696; J1650; J1885; J2405; A9270-GY